=== PATIENT | male | born 1970 | race Two or more races ===

== ENCOUNTER 2024-06-26 08:43 | Emergency (ER) | payer OTHER ==
[~2024-06-26] VITALS: Ht 170.2 cm; Wt 89.4 kg
[2024-06-26] MEDS ORDERED: ENALAPRIL MALEAT5 MG PO (09:05)
[2024-06-26] MEDS ORDERED: ROSUVASTATIN CAL5 MG PO (09:05)
[2024-06-26 13:56] LABS: HEMATOCRIT 43.8 % (39.0-48.0); HEMOGLOBIN 14.7 g/dL (13-16.00); MEAN CELL VOLUME 86.8 fL (80.0-100.00); MEAN CORPUSCULAR HEMOGLOBIN 29.2 pg (27.00-32.0); MEAN CORPUSCULAR HGB CONC 33.7 g/dl (32.0-36.0); PLATELET COUNT 226 K/uL (150-450); RED BLOOD COUNT 5.05 M/uL (4.00-6.00)
[2024-06-26 14:27] LABS: PH,URINE 7.5 (5.0-8.0); URINE APPEARANCE Clear; URINE BILIRRUBIN Negative (NEGATIVE); URINE BLOOD Negative; URINE COLOR Yellow; URINE GLUCOSE Negative (NEGATIVE); URINE KETONE Negative (NEGATIVE); URINE LEUKOCYTE Trace; URINE NITRATE Negative; URINE PROTEIN Negative (NEGATIVE); URINE UROBILINOGEN 0.2 E.U./dl
[2024-06-26 14:30] LABS: URINE BACTERIA 250.8 uL (0.0-1933); URINE EPITHELIAL CELLS 4.1 uL (0.0-38.8); URINE RBC 3.9 uL (0.0-20.8); URINE WBC 10.9 uL (0.0-23.2)
== END 2024-06-26 16:11 | disposition home or self-care (01) ==
LOC: ER 08:45
DX: N39.0 Urinary tract infection, site not specified (principal); N48.1 Balanitis